=== PATIENT | female | born 1965 | race Two or more races ===

== ENCOUNTER 2020-09-29 07:33 | Outpatient (CLI) | payer OTHER | END 2020-09-29 07:40 | disposition home or self-care (01) | LOC: LAB 07:33 | DX: C54.1 Malignant neoplasm of endometrium (principal); L93.2 Other local lupus erythematosus ==

== ENCOUNTER 2021-02-21 12:54 | Emergency (ER) | payer OTHER ==
[~2021-02-21] VITALS: Ht 162.6 cm; Wt 74.8 kg
[2021-02-21] MEDS ORDERED: PAXIL20 MG (13:10)
[2021-02-21] MEDS ORDERED: PEPCID AC20 MG (13:11)
[2021-02-21] MEDS ORDERED: TRAZODONE HCL100 MG (13:11)
[2021-02-21] MEDS ORDERED: DICY20TA PO (21:48)
[2021-02-21] MEDS ORDERED: ZOFRAN8 MG SL (21:48)
== END 2021-02-21 21:48 | disposition home or self-care (01) ==
LOC: ER 12:54
DX: R10.32 Left lower quadrant pain (principal)